=== PATIENT | male | born 2000 | race Caucasian/White ===

== ENCOUNTER 2020-02-17 19:45 | Emergency (ER) | payer OTHER ==
[~2020-02-17] VITALS: Ht 185.4 cm; Wt 59.0 kg
[2020-02-17 19:59] VITALS: Ht 185.4 cm; Wt 59.0 kg
[2020-02-17 20:11] VITALS: BP 118/68
== END 2020-02-17 20:11 ==
LOC: ED 19:45
DX: Z02.89 Encounter for other administrative examinations (principal)